=== PATIENT | male | born 2005 | race Two or more races ===

== ENCOUNTER 2025-06-13 11:11 | Inpatient (IN) | payer MEDICAID, OTHER ==
[~2025-06-13] VITALS: Ht 177.8 cm; Wt 70.0 kg
--- NOTE | 2025-06-13 11:26 | ED.PDOC ---
GI ASSESSMENT HPI Comments This is a 19 year old male GILBERTO presenting to the ED with chief complaint of abdominal pain. Patient reports that he has been experiencing epigastric abdominal pain with associated fever, diarrhea, and numbness to his upper extremities and face since last night. Patient denies any sick contacts. Patient denies any nausea, vomiting, chest pain, SOB, chills, dizziness, or dysuria. Chief Complaint: Abdominal Pain Time Seen by MD: 11:24 Reviewed Notes: Nurses Notes, Cloth Edge Singer Notes, Medications, Allergies Allergies: Coded Allergies: NO KNOWN ALLERGIES (Unverified , 06/13/25) Information Source: Patient, Emergency Med Personnel Mode of Arrival: EMS Timing: Hours Duration: Since onset Prehospital treatment: None Quality: Aching Vomitus: None Stool: Watery Severity: Moderate Recent: None Recent Hx of: None Pain Location: Epigastric Modifying Factors: Nothing Associated sign and symptoms: Diarrhea, Abdominal Pain Past Medical History PAST MEDICAL HISTORY: Denies Surgical History: Denies all surgeries Family History Family History: Reviewed,noncontributory to illness Social History Smoker: Non-Smoker Alcohol: Denies ETOH Use Drugs: Denies Drug Use Lives In: Home Constitutional: reports: fever; denies: chills, diaphoresis, fatigue, malaise, sweats, weakness, others EENTM: denies: blurred vision, double vision, ear bleeding, ear discharge, ear drainage, ear pain, ear ringing, eye pain, eye redness, hearing loss, mouth pain, mouth swelling, nasal discharge, nose bleeding, nose congestion, nose pain, photophobia, tearing, throat pain, throat swelling, voice changes, others Respiratory: denies: cough, hemoptysis, orthopnea, SOB at rest, shortness of breath, SOB with excertion, stridor, wheezing, others Cardiovascular: denies: chest pain, dizzy spells, diaphoresis, Dyspnea on exertion, edema, irregular heart beat, left arm pain, lightheadedness, palpitations, PND, syncope, others Gastrointestinal: reports: abdominal pain, diarrhea; denies: abdomen distended, blood streaked bowels, constipated, dysphagia, difficulty swallowing, hematemesis, melena, nausea, poor appetite, poor fluid intake, rectal bleeding, rectal pain, vomiting, others Genitourinary: denies: burning, dysuria, flank pain, frequency, hematuria, incontinence, penile discharge, penile sore, pain, testicle pain, testicle swelling, urgency, others Neurological: reports: numbness; denies: dizziness, fainting, headache, left sided numbness, left sided weakness, paresthesia, pre-existing deficit, right sided numbness, right sided weakness, seizure, speech problems, tingling, tremors, weakness, others Musculoskeletal: denies: back pain, gout, joint pain, joint swelling, muscle pain, muscle stiffness, neck pain, others Integumetry: denies: bruises, change in color, change in hair/nails, dryness, laceration, lesions, lumps, rash, wounds, others Allergic/Immunocompromised: denies: Difficulty Healing, Frequent Infections, Hives, Itching, others Hematologic/Lymphatic: denies: anemia, blood clots, easy bleeding, easy bruising, swollen glands, others Endocrine: denies: excessive hunger, excessive sweating, excessive thirst, excessive urination, flushing, intolerance to cold, intolerance to heat, unexplained weight gain, unexplained weight loss, others Psychiatric: denies: anxiety, bipolar disorder, depression, hopeless, panic disorder, schizophrenia, sleepless, suicidal, others All Other Systems: Reviewed and Negative Physical Exam General Appearance: No Apparent Distress, Normal HEENT: Normal ENT Inspection, Pharynx Normal, TMs Normal Neck: Full Range of Motion, Non-Tender, Normal, Normal Inspection Respiratory: Chest Non-Tender, Lungs Clear, No Accessory Muscle Use, No Respiratory Distress, Normal Breath Sounds Cardiovascular: No Edema, No JVD, No Murmur, No Gallop, Normal Peripheral Pulses, Regular Rate/Rhythm Breast Exam: Deferred Gastrointestinal: No Organomegaly, Non Tender, No Pulsatile Mass, Normal Bowel Sounds, Soft Genitalia: Deferred Pelvic: Deferred Rectal: Deferred Extremities: No calf tenderness, Normal capillary refill, Normal inspection, Normal range of motion, Non-tender, No pedal edema Musculoskeletal : Apperance: Normal Neurologic: Alert, artillery or naval gunfire observer II-XII nml as Tested, No Motor Deficits, Normal Affect, Normal Mood, No Sensory Deficits Cerebellar Function: Normal Reflexes: Normal Skin: Dry, Normal Color, Warm Lymphatic: No Adenopathy Was a procedure done? Was a procedure done?: No GI differential Dx Differential Diagnosis: UTI, Bacterial, Viral X-Ray, Labs, Meds, VS Vital Signs Date Time Temp Pulse Resp B/P (MAP) Pulse Ox O2 Delivery O2 Flow Rate FiO2 06/13/25 13:03 102.5 06/13/25 11:21 102.2 120 16 116/71 99 102.2 Lab Test 06/13/25 11:44 06/13/25 11:30 Range/Units White Blood Count 10.1 4.4-10.8 10^3/uL Red Blood Count 5.59 4.5-5.90 10^6/uL Hemoglobin 15.7 13.5-17.5 g/dL Hematocrit 46.1 41.0-53.0 % Mean Corpuscular Volume 82.4 80.0-100.0 fL Mean Corpuscular Hemoglobin 28.0 28.0-32.0 pg Mean Corpuscular Hemoglobin Concent 34.0 32.0-36.0 g/dL Red Cell Distribution Width 13.0 11.8-14.3 % Platelet Count 168 140-450 10^3/uL Mean Platelet Volume 8.6 6.9-10.8 fL Neutrophils (%) (Auto) 92.2 H 37.0-80.0 % Lymphocytes (%) (Auto) 2.3 L 10.0-50.0 % Monocytes (%) (Auto) 5.2 0.0-12.0 % Eosinophils (%) (Auto) 0.0 0.0-7.0 % Basophils (%) (Auto) 0.3 0.0-2.0 % Neutrophils # (Auto) 9.3 H 1.6-8.6 10 ^3/uL Lymphocytes # (Auto) 0.2 L 0.4-5.4 10 ^3/uL Monocytes # (Auto) 0.5 0-1.3 10 ^3/uL Eosinophils # (Auto) 0 0-0.8 10 ^3/uL Basophils # (Auto) 0 0-0.2 10 ^3/uL Nucleated Red Blood Cells 0.0 % Sodium Level 142 136-145 mmol/L Potassium Level 2.9 L 3.5-5.1 mmol/L Chloride Level 105 98-107 mmol/L Carbon Dioxide Level 24 20-31 mmol/L Anion Gap 13 5-15 Blood Urea Nitrogen 9 9-23 mg/dL Creatinine 0.92 0.700-1.30 mg/dL Glomerular Filtration Rate Calc 122 >90 mL/min BUN/Creatinine Ratio 9.8 L 10.0-20.0 Serum Glucose 92 74-106 mg/dL Lactic Acid Level 1.7 0.4-2.0 mmol/L Calcium Level 9.4 8.7-10.4 mg/dL Total Bilirubin 1.1 H 0.2-1.0 mg/dL Aspartate Amino Transferase (AST) 21 13-40 U/L Alanine Aminotransferase (ALT) 20 7-40 U/L Alkaline Phosphatase 85 46-116 U/L Total Protein 7.8 5.7-8.2 g/dL Albumin 5.1 H 3.2-4.8 g/dL Influenza Type A Antigen Negative Negative Influenza Type B Antigen Negative Negative SARS-CoV-2 Antigen (Rapid) Negative NEGATIVE Current Medications Medications (Trade) Dose Ordered Sig/Alex Route Start Time Stop Time Status Last Admin Lactated Ringer's 2,200 ml @ 2,200 mls/hr ONCE ONCE IV 06/13/25 11:30 06/13/25 12:29 DC 06/13/25 11:30 Cefepime HCl 50 ml @ 12.5 mls/hr Q8HR IV 06/13/25 14:00 06/13/25 13:01 Acetaminophen (Tylenol Tablet) 650 mg ONCE ONCE PO 06/13/25 13:00 06/13/25 13:01 DC 06/13/25 13:03 Time of 1ST Reevaluation: 12:23 Reevaluation 1ST: Unchanged Patient Education/Counseling: Diagnosis, Treatment Family Education/Counseling: No Family Present Additional Information Reviewed patient's previous visit(s): None The following tests were ordered, and results were reviewed by me: CBC, BMP, UA Additional information was gathered from interviewing the following independent historian: EMS I reviewed and agreed with the following test results read by other provider: I discussed treatments and results with medical personnel and: PATIENT Comprehensive systems review obtained and negative except for what is stated in the HPI. SEPSIS Sepsis Screen Date sepsis recognized/suspect: Jun 13, 2025 Time Sepsis recognized/suspect: 11:30 Recent Procedure: No On Antibiotic Therapy: No Respiratory Rate >20: No Heart Rate >90: Yes Temp<36 C (96.8 F) or >38.3 C: Yes SBP <90 or MAP <65 mmHG: No New Acute Mental Status Change: No Is the patient on CPAP, BIPAP,: No IV fluid challenge completed?: Yes Physician Orders Urinalysis (06/13/25 11:25) Chest Portable (06/13/25 11:25) Accucheck (06/13/25 11:25) Lactic Acid W/ Reflex Order (06/13/25 14:00) Cefepime 1gm/50ml (Maxipime 1gm/50ml) (06/13/25 14:00) Notify Md If Map <65 Or Bp<90 (06/13/25 11:25) If Map<65 Start Vasopressor (06/13/25 11:25) Sepsis Reassesment After Fluid (06/13/25 12:25) Blood Culture (06/13/25 12:32) Potassium Er Tablet (Klor-Con Tablet) (06/13/25 13:15) Vital Signs Date Time Temp Pulse Resp B/P (MAP) Pulse Ox O2 Delivery O2 Flow Rate FiO2 06/13/25 13:03 102.5 06/13/25 11:21 102.2 120 16 116/71 99 102.2 Laboratory Tests Test 06/13/25 11:44 Lactic Acid Level 1.7 mmol/L (0.4-2.0) White Blood Count 10.1 10^3/uL (4.4-10.8) Medications Medications Dose Ordered Sig/Alex Route Start Time Stop Time Status Last Admin Dose Admin Acetaminophen 650 mg ONCE ONCE PO 06/13/25 13:00 06/13/25 13:01 DC 06/13/25 13:03 Cefepime HCl 50 ml @ 12.5 mls/hr Q8HR IV 06/13/25 14:00 06/13/25 13:01 Lactated Ringer's 2,200 ml @ 2,200 mls/hr ONCE ONCE IV 06/13/25 11:30 06/13/25 12:29 DC 06/13/25 11:30 Reassessment Post Fluid Pulse Location: Radial Pulse Strength: Normal Capillary Refill Exam: < 3 seconds Skin Temperature: Warm Skin Moisture: Dry Skin Tugor: WNL Skin Color: WNL Fingernail Color: WNL Departure 1 Departure Time of Disposition: 13:14 Impression: Primary Impression: Pneumonitis Additional Impressions: Sepsis Qualified Codes: A41.9 - Sepsis, unspecified organism Hypokalemia Disposition: 09 ADMITTED INPATIENT Admit to: Tele Condition: Serious Discharged With: Self Critical Care Note Critical Care Time?: Yes (55 min-critical care time only) Critical care comment: due to concerns for patient's condition deteriorating, the care required my highest level of attention and readiness to intervene. i assessed the patient's condition, ordered the proper tests and treatments, reassessed for response and reviewed the results. i communicated with medical personnel and formulated a plan of care. total critical care time does not include any procedures Stability Stability form required: No Heart Score Heart Score: Heart Score Response (Comments) Value History N/A 0 EKG N/A 0 Age N/A 0 Risk Factors N/A 0 Troponin N/A 0 Total 0 I personally scribed for SKYLA BUCIO MD ([email or web address]) on 06/13/25 at 11:26. Electronically submitted by Rick Celaya ([email or web address]). SKYLA BUCIO MD Jun 13, 2025 11:26
[2025-06-13] MEDS: LACTATED RINGER'S 2,200 ML IV ONE (11:30)
[2025-06-13 11:58] LABS: Hematocrit 46.1 % (41.0-53.0); Hemoglobin 15.7 g/dL (13.5-17.5); Mean Corpuscular Hemoglobin 28.0 pg (28.0-32.0); Mean Corpuscular Volume 82.4 fL (80.0-100.0); Nucleated Red Blood Cells % 0.0 %
--- NOTE | 2025-06-13 11:59 | DVH ---
CHEST RADIOGRAPH Indication: fever Technique: Single frontal view of the chest was obtained COMPARISON: None FINDINGS: Lines and Tubes: None Lungs: Increased interstital prominence. This may represent pulmonary vascular congestion and/or samara l pneumonia. Clinical correlation advised. Pleura: No effusion. No pneumothorax. Cardiomediastinal contours: Unremarkable Bones: Unremarkable IMPRESSION: Increased interstital prominence. This may represent pulmonary vascular congestion and/or viral pneum onia. Clinical correlation advised.
[2025-06-13 12:08] LABS: COVID19 ANTIGEN SOFIA FIA NEGATIVE (NEGATIVE)
[2025-06-13 12:17] LABS: Alanine Aminotransferase 20 U/L (7-40); Alkaline Phosphatase 85 U/L (46-116); Anion Gap 13 (5-15); BUN/Creatinine Ratio 9.8 (10.0-20.0); Blood Urea Nitrogen 9 mg/dL (9-23); Calcium 9.4 mg/dL (8.7-10.4); Carbon Dioxide 24 mmol/L (20-31); Chloride 105 mmol/L (98-107); Glucose 92 mg/dL (74-106); Sodium 142 mmol/L (136-145); Total Protein 7.8 g/dL (5.7-8.2)
[2025-06-13 12:18] LABS: Albumin 5.1 g/dL (3.2-4.8); Bilirubin, Total 1.1 mg/dL (0.2-1.0); Potassium 2.9 mmol/L (3.5-5.1)
[2025-06-13] MEDS: CEFEPIME 1GM/50ML 50 ML IV SCH (13:01)
[2025-06-13] MEDS: ACETAMINOPHEN 325 MG TAB PO ONE (13:03)
[2025-06-13] MEDS: POTASSIUM CHL 20 Meq TABLET PO ONE (13:41)
[2025-06-13 15:22] LABS: Lactic Acid w/Reflex 2.4 mmol/L (0.4-2.0)
[2025-06-13] MEDS ORDERED: VANCOMYCIN PER PHARMACY 0 MG IV SCH (17:00)
[2025-06-13] MEDS: PANTOPRAZOLE 40 MG/10 ML VIAL INJ IV ONE (17:50)
[2025-06-13] MEDS: LACTATED RINGER'S 1,000 ML IV ONE (18:03)
--- NOTE | 2025-06-13 18:05 | DVH ---
Technique: Real-time ultrasound imaging of the abdomen was performed with grayscale and color Doppler . Indication: abdominal pain, fever, nausea Comparison: None Findings: Liver measures 16.1 cm. It is unremarkable in echogenicity and echotexture without focal mass. Vincent l vein is normal in caliber and demonstrates normal hepatopetal flow. Gallbladder demonstrates no evidence for cholelithiasis. There is no pericholecystic fluid. The wall thickness is normal. The common bile duct measures 3 mm. No intrahepatic biliary ductal dilatation. The right kidney measures 9.6 cm. The left kidney measures 12.5 cm. No hydronephrosis or sonographic evidence of nephrolithiasis. The visualized portion of the pancreas is unremarkable. Spleen measures 11.8 cm. The visualized portion of the IVC is unremarkable. The aorta measures up to 1.7 cm in diameter. Impression: No sonographic evidence for cholelithiasis.
[2025-06-13] MEDS: POTASSIUM CHL 20MEQ/100ML 100 ML IV SCH (18:13)
--- NOTE | 2025-06-13 18:49 | DVHHPRES ---
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 The abdominal pain increased today morning which prompted him to visit the emergency. Patient denies any chest pain, shortness of breath, recent travel history, sick contacts, palpitations. Patient reports that On his way to the emergency he felt his neck becoming tight and was not able to move it side by side as easily, had numbness in his hands from the elbow down to his fingertips. He does not have any photophobia but complains of a headache that has been there for the past 6 months. On inquiry patient reports that he had gastritis 2 years ago and was admitted for it and endoscopy was done which did not reveal any significant finding. He was asked to do a colonoscopy which he did not follow up with. In the emergency patient was hypokalemic and had a fever of 102.2. Patient was admitted for further workup. Past medical history: Gastritis 2 years ago EGD done revealed no significant f indings Past surgical history: None Family history: None Social history: Patient lives with family, does not smoke take alcohol or take any illicit drugs Allergies: None Home medications: None Code status: Full code Review of Systems Constitutional: Yes: Fever, Chills; No: Sweats, Weakness, Malaise, Other Eyes: No: Pain, Vision change, Conjunctivae inflammation, Eyelid inflammation, Other, Redness ENT: No: Ear pain, Ear discharge, Nose pain, Nose discharge, Nose congestion, Mouth pain, Mouth swelling, Throat pain, Throat swelling, Other Respiratory: No: Cough, Dry, Shortness of breath, SOB with excertion, Wheezing, Hemoptysis, Pleuritic Pain, Sputum, Wheezing, Other Cardiovascular: No: Chest Pain, Palpitations, Orthopnea, Paroxysmal Noc. Dyspnea, Edema, Lt Headedness, Other Gastrointestinal: Nausea, Abdominal Pain, Diarrhea; No: Vomiting, Constipation, Melena, Hematochezia, Other Genitourinary: No Dysuria, No Frequency, No Incontinence, No Hematuria, No Retention, No Other Musculoskeletal: No: other, neck pain, shoulder pain, arm pain, back pain, hand pain, leg pain, foot pain Skin: No: Rash, Lesions, Jaundice, Bruising, Other Neurological: No: Weakness, Numbness, Incoordination, Change in speech, Confusion, Seizures, Other Allergies: Coded Allergies: NO KNOWN ALLERGIES (Unverified , 06/13/25) Medications Current Medications Medications Dose Ordered Sig/Alex Route Start Time Stop Time Status Last Admin Dose Admin Cefepime HCl 50 ml @ 12.5 mls/hr Q8HR IV 06/13/25 14:00 06/13/25 13:01 12.5 MLS/HR Vancomycin HCl 0 ml @ 0 mls/hr UD IV 06/13/25 17:00 Vancomycin HCl 250 ml @ 250 mls/hr Q8H IV 06/13/25 21:00 Metronidazole 100 ml @ 100 mls/hr Q8H IV 06/14/25 01:00 Acetaminophen 500 mg Q6HP PRN PO 06/13/25 17:00 Potassium Chloride 100 ml @ 50 mls/hr Q2H IV 06/13/25 17:00 06/13/25 20:59 06/13/25 18:13 50 MLS/HR Pantoprazole Sodium 40 mg DAILY IV 06/14/25 10:00 Exam Vital Signs Vital Signs Date Time Temp Pulse Resp B/P (MAP) Pulse Ox O2 Delivery O2 Flow Rate FiO2 06/13/25 18:00 124 12 104/48 (66) 98 06/13/25 17:01 98.5 98.5 06/13/25 14:36 Room Air* 0 21 Exam Pt is lying on bed General Appearance: Alert, Oriented X3, Cooperative, Not in acute distress HEENT: Atraumatic, Mucous membranes moist/pink, negative brudzinski sign sign, negative Kernig sign Respiratory: Clear to auscultation, Normal air movement, No added sounds Cardiovascular: Regular rate, Normal S1, Normal S2, No murmurs Abdominal: Active bowel sounds, Soft, no distention, no tenderness, mild discomfort on epigastric palpation Extremities: No edema, Normal pulses, No tenderness/swelling Skin: No Significant rash, except past surgical scars Neuro: Normal speech, sensorimotor deficits none Psych/Mental Status: Mental status NL, Mood NL Nurse was there as casino floor walker during examination Labs/Xrays Labs Test 06/13/25 17:51 06/13/25 16:29 06/13/25 11:44 06/13/25 11:30 Range/Units Lactic Acid Level 1.5 0.4-2.0 mmol/L White Blood Count 10.1 4.4-10.8 10^3/uL Red Blood Count 5.59 4.5-5.90 10^6/uL Hemoglobin 15.7 13.5-17.5 g/dL Hematocrit 46.1 41.0-53.0 % Mean Corpuscular Volume 82.4 80.0-100.0 fL Mean Corpuscular Hemoglobin 28.0 28.0-32.0 pg Mean Corpuscular Hemoglobin Concent 34.0 32.0-36.0 g/dL Red Cell Distribution Width 13.0 11.8-14.3 % Platelet Count 168 140-450 10^3/uL Mean Platelet Volume 8.6 6.9-10.8 fL Neutrophils (%) (Auto) 92.2 H 37.0-80.0 % Lymphocytes (%) (Auto) 2.3 L 10.0-50.0 % Monocytes (%) (Auto) 5.2 0.0-12.0 % Eosinophils (%) (Auto) 0.0 0.0-7.0 % Basophils (%) (Auto) 0.3 0.0-2.0 % Neutrophils # (Auto) 9.3 H 1.6-8.6 10 ^3/uL Lymphocytes # (Auto) 0.2 L 0.4-5.4 10 ^3/uL Monocytes # (Auto) 0.5 0-1.3 10 ^3/uL Eosinophils # (Auto) 0 0-0.8 10 ^3/uL Basophils # (Auto) 0 0-0.2 10 ^3/uL Nucleated Red Blood Cells 0.0 % Sodium Level 142 136-145 mmol/L Potassium Level 2.9 L 3.5-5.1 mmol/L Chloride Level 105 98-107 mmol/L Carbon Dioxide Level 24 20-31 mmol/L Anion Gap 13 5-15 Blood Urea Nitrogen 9 9-23 mg/dL Creatinine 0.92 0.700-1.30 mg/dL Glomerular Filtration Rate Calc 122 >90 mL/min BUN/Creatinine Ratio 9.8 L 10.0-20.0 Serum Glucose 92 74-106 mg/dL Calcium Level 9.4 8.7-10.4 mg/dL Total Bilirubin 1.1 H 0.2-1.0 mg/dL Aspartate Amino Transferase (AST) 21 13-40 U/L Alanine Aminotransferase (ALT) 20 7-40 U/L Alkaline Phosphatase 85 46-116 U/L Total Protein 7.8 5.7-8.2 g/dL Albumin 5.1 H 3.2-4.8 g/dL Influenza Type A Antigen Negative Negative Influenza Type B Antigen Negative Negative SARS-CoV-2 Antigen (Rapid) Negative NEGATIVE SEPSIS Sepsis Screen Date sepsis recognized/suspect: Jun 13, 2025 Time Sepsis recognized/suspect: 11:30 Recent Procedure: No On Antibiotic Therapy: No Respiratory Rate >20: No Heart Rate >90: Yes Temp<36 C (96.8 F) or >38.3 C: Yes SBP <90 or MAP <65 mmHG: No New Acute Mental Status Change: No Is the patient on CPAP, BIPAP,: No IV fluid challenge completed?: Yes Physician Orders Urinalysis (06/13/25 11:25) Chest Portable (06/13/25 11:25) Accucheck (06/13/25 11:25) Cefepime 1gm/50ml (Maxipime 1gm/50ml) (06/13/25 14:00) Notify Md If Map <65 Or Bp<90 (06/13/25 11:25) If Map<65 Start Vasopressor (06/13/25 11:25) Sepsis Reassesment After Fluid (06/13/25 12:25) Blood Culture (06/13/25 12:32) Vancomycin Per Pharmacy (06/13/25 17:00) Vancomycin 1gm/250ml Kit (06/13/25 21:00) Mrsa Screen (06/13/25 16:59) Stool Bacterial Culture (06/13/25 16:59) Strict I & O QSHIFT (06/13/25 16:59) Npo (Nothing By Mouth) Diet (06/13/25 Dinner) Head Without Contrast (06/13/25 16:59) Electrocardigram (06/13/25 16:59) Troponin-I Hs (06/13/25 16:59) Urine Bacterial Culture (06/13/25 16:59) Drug Screen (06/13/25 16:59) Blood Alcohol (06/13/25 16:59) Ct Ab Pelvis W Wo Con-Iv Only (06/13/25 16:59) Clostridium Difficile Toxin (06/13/25 16:59) Lactated Ringer's (06/13/25 17:00) Acetaminophen Tab Or Cap (Tylenol Tablet (06/13/25 17:00) Potassium Chl 20meq/100ml (06/13/25 17:00) Admit (06/13/25 16:59) Oxygen By Nasal Cannula (06/13/25 16:59) Stat Ekg For Chest Pain (06/13/25 16:59) Notify Of Changes From Base (06/13/25 16:59) Traveling Secretary For 24 Hours (06/13/25 16:59) Emergency Dysrhythmia Protocol (06/13/25 16:59) Rhythm Strips Once Every Shift (06/13/25 16:59) Pantoprazole (Protonix) (06/14/25 10:00) Code Status (06/13/25 16:59) Abdomen Complete Sonogram (06/13/25 17:11) Metronidazole 500mg/100ml (Flagyl 500mg/ (06/14/25 01:00) Vancomycin Per Pharmacy Protoc (06/14/25 21:00) Vancomycin,Trough (06/14/25 20:00) Complete Blood Count (06/14/25 04:00) Creatinine (06/14/25 04:00) Stool Wbc (06/13/25 18:35) Vital Signs Date Time Temp Pulse Resp B/P (MAP) Pulse Ox O2 Delivery O2 Flow Rate FiO2 06/13/25 18:00 124 12 104/48 (66) 98 06/13/25 17:01 98.5 124 14 114/63 (80) 98 98.5 06/13/25 16:40 102.9 124 20 113/53 (73) 98 102.9 06/13/25 15:37 100.9 06/13/25 14:36 Room Air* 0 21 06/13/25 13:32 132 20 100 Room Air 06/13/25 13:32 101.4 132 20 118/55 (76) 100 101.4 06/13/25 13:03 102.5 06/13/25 11:21 102.2 120 16 116/71 99 102.2 Laboratory Tests Test 06/13/25 11:44 06/13/25 14:37 06/13/25 16:29 Lactic Acid Level 1.7 mmol/L (0.4-2.0) 2.4 mmol/L (0.4-2.0) *H 1.5 mmol/L (0.4-2.0) White Blood Count 10.1 10^3/uL (4.4-10.8) Medications Medications Dose Ordered Sig/Alex Route Start Time Stop Time Status Last Admin Dose Admin Acetaminophen 650 mg ONCE ONCE PO 06/13/25 13:00 06/13/25 13:01 DC 06/13/25 13:03 650 MG Cefepime HCl 50 ml @ 12.5 mls/hr Q8HR IV 06/13/25 14:00 06/13/25 13:01 12.5 MLS/HR Lactated Ringer's 1,000 ml @ 100 mls/hr Q10H ONCE IV 06/13/25 17:00 06/14/25 02:59 06/13/25 18:03 100 MLS/HR Lactated Ringer's 2,200 ml @ 2,200 mls/hr ONCE ONCE IV 06/13/25 11:30 06/13/25 12:29 DC 06/13/25 11:30 2,200 MLS/HR Metronidazole 100 ml @ 100 mls/hr ONCE ONCE IV 06/13/25 17:00 06/13/25 17:59 DC 06/13/25 18:06 100 MLS/HR Pantoprazole Sodium 40 mg ONCE ONCE IV 06/13/25 17:00 06/13/25 17:24 DC 06/13/25 17:50 40 MG Potassium Chloride 60 meq ONCE ONCE PO 06/13/25 13:15 06/13/25 13:21 DC 06/13/25 13:41 60 MEQ Potassium Chloride 100 ml @ 50 mls/hr Q2H IV 06/13/25 17:00 06/13/25 20:59 06/13/25 18:13 50 MLS/HR Reassessment Post Fluid Pulse Location: Radial Pulse Strength: Normal Capillary Refill Exam: < 3 seconds Skin Temperature: Warm Skin Moisture: Dry Skin Tugor: WNL Skin Color: WNL Fingernail Color: WNL Assessment/Plan Assessment/Plan #possible gastroenteritis #acute on chronic headache likely due to sepsis /dehydration -EKG -Pantoprazole 40 mg IV daily scheduled -metronidazole 500 mg IV Q 8 ALEX -vancomycin 1 g IV Q 8 scheduled -cefepime 2 g IV Q 8 -Lactic acid -UDS -UA -Troponins -NPO -Stool bacterial culture -Blood culture -C diff -Urine bacterial culture - IV fluid ringer lactate 100 mL/hour -IV fluid ringer lactate 13 mL/kg over 1 hour - CT abdomen pelvis with and without contrast IV only - head CT without contrast #Hypokalemia -Repleted GI prophylaxis: Protonix IV 40 mg daily Diet: NPO Goals of care discussed with the patient for more than 27 minutes: Full code status Case discussed with , patient and nurse. Plan discussed with: Patient Date of Service: Jun 13, 2025 Billing Provider: ANNE MARIE ENGEL MD Common Visit Codes: 81890-[id number] INP/OBS CARE (HIGH) CHASE SHEPHERD RESIDENT Jun 13, 2025 18:49 ANNE MARIE ENGEL MD Jun 15, 2025 09:11
[2025-06-13 19:30] LABS: Urine Protein, UAD Negative (Negative)
[2025-06-13 19:49] LABS: Amphetamine Screen, Urine Neg (NEGATIVE)
[2025-06-13 19:52] LABS: Barbiturate Scree,Urine Neg (NEGATIVE); Benzodiazephine Screen, Urine Neg (NEGATIVE); Cannabinoid Screen, Urine Neg (NEGATIVE); Cocaine Screen, Urine Neg (NEGATIVE); Opiate Scree,Urine Neg (NEGATIVE); Phencyclidine Screen, Urine Neg (NEGATIVE)
[2025-06-13 20:25] VITALS: O2SAT 97
[2025-06-13 20:48] LABS: Potassium 4.0 mmol/L (3.5-5.1); Sodium 140 mmol/L (136-145)
[2025-06-13 20:49] LABS: Anion Gap 10 (5-15); Carbon Dioxide 21 mmol/L (20-31)
[2025-06-13 20:54] LABS: BUN/Creatinine Ratio 8.6 (10.0-20.0)
[2025-06-13] MEDS: VANCOMYCIN 1GM/250ML KIT 250 ML IV SCH (21:00)
[2025-06-13 21:13] LABS: Blood Urea Nitrogen 7 mg/dL (9-23); Calcium 8.6 mg/dL (8.7-10.4); Chloride 109 mmol/L (98-107); Glucose 108 mg/dL (74-106)
[2025-06-14] VITALS (7 sets, daily range): BP systolic 118–130; BP diastolic 68–74; PULSE 77–91; RESP 16–18; TEMP 98.6–99.4; O2SAT 98–99
[2025-06-14 04:46] LABS: Hematocrit 40.1 % (41.0-53.0); Hemoglobin 13.8 g/dL (13.5-17.5); Mean Corpuscular Hemoglobin 28.6 pg (28.0-32.0); Mean Corpuscular Volume 82.9 fL (80.0-100.0); Nucleated Red Blood Cells % 0.0 %
[2025-06-14 04:55] LABS: Chloride 107 mmol/L (98-107); Potassium 3.8 mmol/L (3.5-5.1); Sodium 142 mmol/L (136-145)
[2025-06-14 04:56] LABS: Anion Gap 12 (5-15); Carbon Dioxide 23 mmol/L (20-31)
[2025-06-14 04:57] LABS: Calcium 8.9 mg/dL (8.7-10.4)
[2025-06-14 05:02] LABS: Glucose 94 mg/dL (74-106)
[2025-06-14 05:06] LABS: BUN/Creatinine Ratio 8.2 (10.0-20.0); Blood Urea Nitrogen < 5 mg/dL (9-23)
[2025-06-14] MEDS: IOHEXOL 300 MG/ML 100ML BOTTLE IJ ONE (07:48)
--- NOTE | 2025-06-14 08:26 | DVH ---
EXAM: CT HEAD WITHOUT CONTRAST INDICATION: RULE OUT MENINGITIS TECHNIQUE: CT of the head without intravenous contrast. Radiation Dose : 1. Head: CT Dose: CTDI volume is 7.8 mGy. Dose-length product is 1698.8 mGy*cm The dose indicators for CT are the volume Computed Tomography (CT) Dose Index (CTDIvol) and the Dose Length Product (DLP), and are measured in units of mGy and mGy-cm, respectively. These indicators are not patient dose, but values generated from the CT scanner acquisition factors. The report includes radiation exposure data for exposures received during this examination. COMPARISON: None FINDINGS: There is no evidence of acute intracranial hemorrhage, extra-axial collection, mass effect, midline s hift, herniation or hydrocephalus. The ventricles, sulci and cisterns are age appropriate. The suarez-white differentiation is intact. The visualized paranasal sinuses and mastoid air cells are clear. The surrounding soft tissues and osseous structures are unremarkable. IMPRESSION: No acute intracranial abnormality. Radiation optimization: All CT scans at this facility use at least one of these dose optimization klaus hniques: automated exposure control mA and/or kV adjustment per patient size (includes targeted exam s where dose is matched to clinical indication) or iterative reconstruction.
--- NOTE | 2025-06-14 08:41 | DVH ---
Exam: CT CT AB PEL WITH IV CON ONLY History: GASTROENTERITIS COMPARISON: None Technique: Multidetector spiral CT of the abdomen and pelvis was performed from lung bases to pubic s ymphysis. Intravenous contrast was administered during this examination. Portal venous imaging was o btained. Axial, coronal and sagittal multiplanar reformats were performed by the technologist on a [employer] workstation. Radiation Dose : 1. Abdomen/Pelvis: CTDIvol 7.8 mGy, DLP 1698.8 mGy*cm. Findings: Lung Bases: No acute or significant lung base finding. Normal heart size. No pleural or pericardial effusion. Liver: The liver is normal in size. No focal lesions. Normal hepatic vascular enhancement. Gallbladder and Biliary Tree: Unremarkable Spleen: Unremarkable Pancreas: The pancreas is normal in appearance without focal lesions or abnormal enhancement. Adrenal Glands: Unremarkable Kidneys: No hydronephrosis. Bladder: Unremarkable Bowel: The stomach is grossly normal in appearance. Small bowel and colon are normal in caliber and d istribution. The appendix is not visualized; however, no secondary findings of acute appendicitis júnior ntified. Ascites: Absent Lymphadenopathy: No mesenteric, retroperitoneal or periportal lymphadenopathy. Abdominal Wall and Mesentery: Unremarkable. Vasculature: The visualized abdominal aorta is normal in size and caliber. Abdominal and pelvic vess els demonstrate normal enhancement. Pelvic Organs: Unremarkable Musculoskeletal: No aggressive focal bony lesions, acute fractures or dislocation. IMPRESSION: No acute abdominal or pelvic finding. Radiation optimization: All CT scans at this facility use at least one of these dose optimization klaus hniques: automated exposure control mA and/or kV adjustment per patient size (includes targeted exam s where dose is matched to clinical indication) or iterative reconstruction.
[2025-06-14] MEDS: PANTOPRAZOLE 40 MG/10 ML VIAL INJ IV SCH (09:49)
--- NOTE | 2025-06-14 13:25 | DVHPNRES ---
Progress Note Date Seen: Jun 14, 2025 Resident Creating Document: CHASE SHEPHERD RESIDENT Has the PT tested + for MRSA If YES, has PT been informed?: No Medical Necessity Reason Pt with a Central, PICC or Fol: No Subjective Review of Systems 19-year-old male with past medical history of gastritis 2 years ago, no other comorbidities, came in for acute epigastric abdominal since yesterday night, 8/ 10 in intensity, nonradiating, increased after he ate [place] food, got relieved by Tylenol for sometime, associated with two episodes of watery diarrhea, fever, nausea but no vomiting. The abdominal pain increased today morning which prompted him to visit the emergency. Patient denies any chest pain, shortness of breath, recent travel history, sick contacts, palpitations. Patient reports that On his way to the emergency he felt his neck becoming tight and was not able to move it side by side as easily, had numbness in his hands from the elbow down to his fingertips. He does not have any photophobia but complains of a headache that has been there for the past 6 months. On inquiry patient reports that he had gastritis 2 years ago and was admitted for it and endoscopy was done which did not reveal any significant finding. He was asked to do a colonoscopy which he did not follow up with. In the emergency patient was hypokalemic and had a fever of 102.2. Patient was admitted for further workup. Past medical history: Gastritis 2 years ago EGD done revealed no significant findings Past surgical history: None Family history: None Social history: Patient lives with family, does not smoke take alcohol or take any illicit drugs Allergies: None Home medications: None Code status: Full code ROS: 06/14/2025: today the patient was seen and examined by me at the bedside. Patient has no new active complaints. He reports that his abdominal pain is better, his neck stiffness has decreased as well. CT of the head, abdomen and pelvis were both negative. Ultrasound report was normal as well. We will continue the antibiotics and are awaiting stool culture reports. Objective vital signs Vital Sign Date Time Temp Pulse Resp B/P (MAP) Pulse Ox O2 Delivery O2 Flow Rate FiO2 06/14/25 12:35 99.2 81 16 130/69 (89) 99 99.2 06/14/25 11:35 Room Air* 0 21 Total Intake and Output 10/03/0206/13/25 06/14/25 15:00 23:00 07:00 Intake Total 2200 ml 50 ml Balance 2200 ml 50 ml medications Current Medications Medications Dose Ordered Sig/Alex Route Start Time Stop Time Status Last Admin Dose Admin Cefepime HCl 50 ml @ 12.5 mls/hr Q8HR IV 06/13/25 14:00 06/14/25 05:58 12.5 MLS/HR Vancomycin HCl 0 ml @ 0 mls/hr UD IV 06/13/25 17:00 Vancomycin HCl 250 ml @ 250 mls/hr Q8H IV 06/13/25 21:00 06/14/25 12:34 250 MLS/HR Metronidazole 100 ml @ 100 mls/hr Q8H IV 06/14/25 01:00 06/14/25 09:00 100 MLS/HR Acetaminophen 500 mg Q6HP PRN PO 06/13/25 17:00 Pantoprazole Sodium 40 mg DAILY IV 06/14/25 10:00 06/14/25 09:49 40 MG Examination Pt is lying on bed General Appearance: Alert, Oriented X3, Cooperative, Not in acute distress HEENT: Atraumatic, Mucous membranes moist/pink, negative brudzinski sign sign, negative Kernig sign Respiratory: Clear to auscultation, Normal air movement, No added sounds Cardiovascular: Regular rate, Normal S1, Normal S2, No murmurs Abdominal: Active bowel sounds, Soft, no distention, no tenderness, mild discomfort on epigastric palpation Extremities: No edema, Normal pulses, No tenderness/swelling Skin: No Significant rash, except past surgical scars Neuro: Normal speech, sensorimotor deficits none Psych/Mental Status: Mental status NL, Mood NL Nurse was there as transportation coordinator during examination laboratory and microbiology Laboratory Tests 06/14/25 04:19 Test 06/14/25 04:19 Range/Units Serum Glucose 94 74-106 mg/dL Microbiology Date/Time Source Procedure Growth Status 06/13/25 19:07 Voided Urine Urine Culture - Preliminary Resulted 06/13/25 12:41 Blood Blood Culture - Preliminary NO GROWTH AFTER 24 HOURS OF INCUBATION. Resulted Labs and/or images reviewed: Labs reviewed by me, Image(s) reviewed by me Problem List/Assessment/Plan Problem List/Assessment/Plan #possible gastroenteritis #acute on chronic headache likely due to sepsis /dehydration -EKG -Pantoprazole 40 mg IV daily scheduled -metronidazole 500 mg IV Q 8 ALEX -vancomycin 1 g IV Q 8 scheduled -cefepime 2 g IV Q 8 -Lactic acid 2.4>1.5 -UDS negative -UA normal -Troponin I negative -NPO -Stool bacterial culture -Blood culture prelim negative -C diff -Urine bacterial culture - IV fluid ringer lactate 100 mL/hour - IV fluid ringer lactate 13 mL/kg over 1 hour - USG abdomen- No sonographic evidence for cholelithiasis. - CT abdomen pelvis with and without contrast IV: No acute abdominal or pelvic finding. - head CT without contrast: No acute intracranial abnormality. #Hypokalemia -Repleted GI prophylaxis: Protonix 40mg IV daily Diet: NPO Goals of care discussed with the patient for more than 27 minutes: Full code status Case discussed with , patient and nurse. Plan discussed with: Patient Date of Service: Jun 14, 2025 Billing Provider: ANNE MARIE ENGEL MD Common Visit Codes: 19559-QDX/OBS SAME DATE (HIGH) CHASE SHEPHERD RESIDENT Jun 14, 2025 13:24 ANNE MARIE ENGEL MD Jun 15, 2025 14:51
[2025-06-14] MEDS: ACETAMINOPHEN 500 MG TAB or CAP PO PRN (15:58)
[2025-06-14] MEDS: VANCOMYCIN 1.25GM/250ML 250 ML IV SCH (21:28)
[2025-06-15 00:01] VITALS: PULSE 77
[2025-06-15 01:00] VITALS: BP 114/66; PULSE 80; RESP 18; TEMP 98.3; O2SAT 99
[2025-06-15 05:00] VITALS: BP 114/70; PULSE 84; RESP 18; TEMP 98.3; O2SAT 97
[2025-06-15 05:32] LABS: Hematocrit 43.6 % (41.0-53.0); Hemoglobin 15.3 g/dL (13.5-17.5); Mean Corpuscular Hemoglobin 28.8 pg (28.0-32.0); Mean Corpuscular Volume 82.2 fL (80.0-100.0); Nucleated Red Blood Cells % 0.2 %
[2025-06-15 05:52] LABS: Alanine Aminotransferase 15 U/L (7-40); Albumin 4.6 g/dL (3.2-4.8); Alkaline Phosphatase 64 U/L (46-116); Anion Gap 13 (5-15); BUN/Creatinine Ratio 12.0 (10.0-20.0); Calcium 9.3 mg/dL (8.7-10.4); Carbon Dioxide 25 mmol/L (20-31); Chloride 103 mmol/L (98-107); Glucose 76 mg/dL (74-106); Potassium 3.8 mmol/L (3.5-5.1); Sodium 141 mmol/L (136-145); Total Protein 7.3 g/dL (5.7-8.2)
[2025-06-15 05:53] LABS: Bilirubin, Total 1.0 mg/dL (0.2-1.0)
[2025-06-15 05:54] LABS: Blood Urea Nitrogen 9 mg/dL (9-23)
[2025-06-15 09:00] VITALS: BP 116/80; PULSE 73; RESP 18; TEMP 97.8; O2SAT 99
--- NOTE | 2025-06-15 13:09 | DVHDSRES ---
Discharge Summary Date of Admission Resident Creating Document: CHASE SHEPHERD RESIDENT Jun 13, 2025 at 16:59 Date of Discharge: Jun 15, 2025 Admitting Diagnosis Possible gastroenteritis Labs/Diagnostic Data: Laboratory Results Test 06/15/25 05:05 06/14/25 19:52 06/14/25 10:15 06/13/25 19:07 White Blood Count 5.9 10^3/uL (4.4-10.8) Red Blood Count 5.30 10^6/uL (4.5-5.90) Hemoglobin 15.3 g/dL (13.5-17.5) Hematocrit 43.6 % (41.0-53.0) Mean Corpuscular Volume 82.2 fL (80.0-100.0) Mean Corpuscular Hemoglobin 28.8 pg (28.0-32.0) Mean Corpuscular Hemoglobin Concent 35.0 g/dL (32.0-36.0) Red Cell Distribution Width 13.4 % (11.8-14.3) Platelet Count 150 10^3/uL (140-450) Mean Platelet Volume 8.6 fL (6.9-10.8) Neutrophils (%) (Auto) 63.4 % (37.0-80.0) Lymphocytes (%) (Auto) 24.0 % (10.0-50.0) Monocytes (%) (Auto) 10.8 % (0.0-12.0) Eosinophils (%) (Auto) 1.4 % (0.0-7.0) Basophils (%) (Auto) 0.4 % (0.0-2.0) Neutrophils # (Auto) 3.7 10 ^3/uL (1.6-8.6) Lymphocytes # (Auto) 1.4 10 ^3/uL (0.4-5.4) Monocytes # (Auto) 0.6 10 ^3/uL (0-1.3) Eosinophils # (Auto) 0.1 10 ^3/uL (0-0.8) Basophils # (Auto) 0 10 ^3/uL (0-0.2) Nucleated Red Blood Cells 0.2 % Sodium Level 141 mmol/L (136-145) Potassium Level 3.8 mmol/L (3.5-5.1) Chloride Level 103 mmol/L (98-107) Carbon Dioxide Level 25 mmol/L (20-31) Anion Gap 13 (5-15) Blood Urea Nitrogen 9 mg/dL (9-23) Creatinine 0.75 mg/dL (0.700-1.30) Glomerular Filtration Rate Calc 132 mL/min (>90) BUN/Creatinine Ratio 12.0 (10.0-20.0) Serum Glucose 76 mg/dL (74-106) Calcium Level 9.3 mg/dL (8.7-10.4) Total Bilirubin 1.0 mg/dL (0.2-1.0) Aspartate Amino Transferase (AST) 18 U/L (13-40) Alanine Aminotransferase (ALT) 15 U/L (7-40) Alkaline Phosphatase 64 U/L (46-116) Total Protein 7.3 g/dL (5.7-8.2) Albumin 4.6 g/dL (3.2-4.8) Vancomycin Level Trough 3.1 ug/mL (5-10) Stool for White Cells None seen Urine Color Light-yellow (Yellow) Urine Clarity Clear (Clear) Urine pH 8.0 (5.0-9.0) Urine Specific [place] 1.020 (1.001-1.035) Urine Protein Negative (Negative) Urine Ketones 2+ (Negative) Urine Blood Negative /uL (Negative) Urine Nitrite Negative (Negative) Urine Bilirubin Negative (Negative) Urine Urobilinogen Normal mg/dL (Negative) Urine Leukocyte Esterase Negative /uL (Negative) Urine RBC 1 /hpf (0 - 3) Urine Microscopic WBC /HPF (0-3) Urine Squamous Epithelial Cells None seen /hpf (<5) Urine Bacteria None seen /hpf (None Seen) Urine Glucose Normal mg/dL (Normal) Urine Opiates Screen Neg (NEGATIVE) Urine Fentanyl Screen Neg (NEGATIVE) Urine Barbiturates Screen Neg (NEGATIVE) Urine Phencyclidine Screen Neg (NEGATIVE) Urine Amphetamines Screen Neg (NEGATIVE) Urine Benzodiazepines Screen Neg (NEGATIVE) Urine Cocaine Screen Neg (NEGATIVE) Urine Cannabinoids Screen Neg (NEGATIVE) Test 06/13/25 17:51 06/13/25 16:29 06/13/25 11:30 Troponin I High Sensitivity < 3 ng/L (</=54) Plasma/Serum Blood Alcohol < 3.0 mg/dL (<10) Lactic Acid Level 1.5 mmol/L (0.4-2.0) Influenza Type A Antigen Negative (Negative) Influenza Type B Antigen Negative (Negative) SARS-CoV-2 Antigen (Rapid) Negative (NEGATIVE) Other Laboratory Tests 06/15/25 05:05 Brief Hx & Hospital Course: 19-year-old male with past medical history of gastritis 2 years ago, no other comorbidities, came in for acute epigastric abdominal since yesterday night, 8/ 10 in intensity, nonradiating, increased after he ate [place] food, got relieved by Tylenol for sometime, associated with two episodes of watery diarrhea, fever, nausea but no vomiting. The abdominal pain increased today morning which prompted him to visit the emergency. Patient denies any chest pain, shortness of breath, recent travel history, sick contacts, palpitations. Patient reports that On his way to the emergency he felt his neck becoming tight and was not able to move it side by side as easily, had numbness in his hands from the elbow down to his fingertips. He does not have any photophobia but complains of a headache that has been there for the past 6 months. On inquiry patient reports that he had gastritis 2 years ago and was admitted for it and endoscopy was done which did not reveal any significant finding. He was asked to do a colonoscopy which he did not follow up with. In the emergency patient was hypokalemic and had a fever of 102.2. Patient was admitted for further workup. Past medical history: Gastritis 2 years ago EGD done revealed no significant findings Past surgical history: None Family history: None Social history: Patient lives with family, does not smoke take alcohol or take any illicit drugs Allergies: None Home medications: None Code status: Full code Hospitalization: Patient came to the hospital with a high fever and tachycardia was septic. We did an EKG which was normal and troponin levels were negative. Pantoprazole 40 mg IV daily was given to him and we started him on 3 antibiotics metronidazole 500 mg IV Q 8, vancomycin 1 g IV Q 8 and cefepime 2 g IV Q 8. His lactic acid during admission was 2.4 which later decreased to 1.5. Urine analysis and urine drug screen was done which both came back negative. We kept the patient NPO in the beginning and gave bowel rest. Blood culture was done preliminary was negative we checked for C difficile which was negative. We gave the patient IV fluids ringer lactate and ultrasound of the abdomen was done which showed no evidence of cholelithiasis. A CT abdomen and pelvis with and without contrast was done which showed no acute abdominopelvic findings. Head CT was also done at the very beginning to rule out meningitis as the patient had complained of neck stiffness which came back normal. Patient's headache and neck stiffness improved as well. Patient had hypokalemia on admission and that was repleted as well. We have monitored the patient on telemetry and patients stool was tested as well. Stool tests were normal and patient is now stable for discharge. We proceeded with giving him a full liquid diet which she was able to tolerate and he will be discharged home today. Patient has understood the discharge plan and agreed to it. We have encouraged him to drink and hydrate plenty and he has agreed. Pt is lying on bed General Appearance: Alert, Oriented X3, Cooperative, Not in acute distress HEENT: Atraumatic, Mucous membranes moist/pink, negative brudzinski sign sign, negative Kernig sign Respiratory: Clear to auscultation, Normal air movement, No added sounds Cardiovascular: Regular rate, Normal S1, Normal S2, No murmurs Abdominal: Active bowel sounds, Soft, no distention, no tenderness, mild discomfort on epigastric palpation Extremities: No edema, Normal pulses, No tenderness/swelling Skin: No Significant rash, except past surgical scars Neuro: Normal speech, sensorimotor deficits none Psych/Mental Status: Mental status NL, Mood NL Nurse was there as diesel power mechanic during examination Operations or Procedures CXR: IMPRESSION: Increased interstital prominence. This may represent pulmonary vascular congestion and/or viral pneumonia. Clinical correlation advised. ------ Technique: Real-time ultrasound imaging of the abdomen was performed with grayscale and color Doppler. Indication: abdominal pain, fever, nausea Impression: No sonographic evidence for cholelithiasis. Exam: CT CT AB PEL WITH IV CON ONLY History: GASTROENTERITIS IMPRESSION: No acute abdominal or pelvic finding. Radiation optimization: All CT scans at this facility use at least one of these dose optimization techniques: automated exposure control mA and/or kV adjustment per patient size (includes targeted exams where dose is matched to clinical indication) or iterative reconstruction. ------- EXAM: CT HEAD WITHOUT CONTRAST INDICATION: RULE OUT MENINGITIS IMPRESSION: No acute intracranial abnormality. Radiation optimization: All CT scans at this facility use at least one of these dose optimization techniques: automated exposure control mA and/or kV adjustment per patient size (includes targeted exams where dose is matched to clinical indication) or iterative reconstruction. Condition at Discharge: Stable Final Diagnosis/Problems List #sepsis due to acute viral gastroenteritis,resolved #acute on chronic headache likely due to sepsis /dehydration #Hypokalemia Discharge Disposition: Home Discharge Instruct/Medications Diet: Regular Activity: No Restrictions, As Tolerated Follow Up/Referral: f/u with pcp in 10 days f/u at d/c clinic within 7 days Medications: resume home meds Discharge Statement: "Patient was advised to return to the ER or call 911 if any headaches, dizziness, shortness of breath, chest pain, abdominal pain, bleeding, fevers, or worsening of medical condition. Patient was counseled about treatment plan, medications, possible side effects, patientverbalized understanding. All questions were answered to the best of my ability. This discharge took greater then 30 minutes in planning, reviewing documentation, counseling the patient, and discussing with other team members." ASSESSMENT ASSESSMENT Assessment sepsis due to acute viral gastroenteritis, resolved Date of Service: Jun 15, 2025 Billing Provider: ANNE MARIE ENGEL MD Common Visit Codes: 23765-BAL/OBS DISCH DAY >30min CHASE SHEPHERD Jun 15, 2025 13:09 ANNE MARIE ENGEL MD Jun 15, 2025 17:41
== END 2025-06-15 14:00 | disposition home or self-care (01) | DRG 720 ==
LOC: ER 11:11 → EDBD 11:11 → OVERFLOW 16:59 → TELE-EAST 06-14 11:35
PROVIDERS: ADMIT Student in an Organized Health Care Education/Training Program; ATTEND Student in an Organized Health Care Education/Training Program
DX: A41.89 Other specified sepsis (principal); N17.0 Acute kidney failure with tubular necrosis; A08.4 Viral intestinal infection, unspecified; E87.6 Hypokalemia; E86.0 Dehydration; Z20.822 Contact with and (suspected) exposure to COVID-19; J98.4 Other disorders of lung
CPT/HCPCS: 36415; 70450; 71045; 74177; 76700; 80048; 80053; 80202; 80307; 80320; 81001; 83605; 84484; 85025; 85048; 87040; 87045; 87081; 87086; 87426; 87427; 87493; 87804; 96365; 99291; G0378; J2470; J3480; J3490